=== PATIENT | male | born 1955 | race Caucasian/White ===

== ENCOUNTER 2017-01-12 09:43 | Emergency (ER) | payer SELFPAY ==
[~2017-01-12] VITALS: Ht 182.9 cm; Wt 137.7 kg
[2017-01-12 10:28] LABS: BASOPHIL COUNT 0.1 K/uL (0-0.1); EOSINOPHIL (%) 0.1 % (0-5); IMMATURE GRANULOCYTE COUNT 0.2 K/uL; INSTRUMENT ABS NEUTROPHIL CT 13.1 K/uL; LYMPHOCYTE COUNT 1.9 K/uL (1.0-2.8); MCHC 32.9 G/DL (30.0-36.0); MCV 97.4 FL (86-99); MEAN PLAT.VOLUME 10.3 uM^3 (9.0-12.4); MONOCYTE (%) 8.9 % (3-12); MONOCYTE COUNT 1.5 K/uL (0-0.8); NEUTROPHIL (%) 78.2 % (45-76); NEUTROPHIL COUNT 13.1 K/uL (1.8-6.4); PLATELET COUNT 177 K/uL (156-360); RBC DIS.WIDTH-CV 12.8 % (11.8-14.6); RBC DIS.WIDTH-SD 45.2 % (39-53); RED BLOOD COUNT 4.93 M/uL (4.00-5.50); WHITE BLOOD COUNT 16.8 K/uL (4.1-10.2)
[2017-01-12 10:31] LABS: CREATININE 2.7 mg/dL (0.6-1.3); POTASSIUM 4.2 mEq/L (3.7-5.4)
[2017-01-12 10:39] LABS: INTER. NORMALIZED RATIO 1.7; PROTHROMBIN TIME 17.6 (9.2-11.2); PTT 24.7 (25-32)
[2017-01-12 10:41] LABS: CHLORIDE 98 mEq/L (99-109); POTASSIUM 4.4 mEq/L (3.7-5.4); SODIUM 135 mEq/L (136-147)
[2017-01-12 10:42] LABS: GLUCOSE 165 mg/dL (70-99)
[2017-01-12 10:44] LABS: ANION GAP 24 MEQ/L (2-14)
[2017-01-12 10:46] LABS: GFR ESTIMATE (CALCULATED) 25 mL/min/
[2017-01-12 10:47] LABS: UREA NITROGEN (BUN) 44 mg/dL (9-23)
[2017-01-12 10:49] LABS: TROP-I INTERPRETATION NEGATIVE; TROPONIN-I 0.07 ng/mL (0.0-0.30)
[2017-01-12 11:42] VITALS: BP 189/141
[2017-01-12 12:05] LABS: POINT-OF-CARE METER ID UU13113702
== END 2017-01-12 12:10 ==
LOC: EME 09:43
PROVIDERS: Emergency Medicine
DX: R06.02 Shortness of breath (principal); I48.92 Unspecified atrial flutter; I48.91 Unspecified atrial fibrillation; I46.2 Cardiac arrest due to underlying cardiac condition; Z86.711 Personal history of pulmonary embolism
CPT/HCPCS: 70450; 71010; 80047; 80048; 82948; 83605; 83880; 84484; 85025; 85610; 85730; 87040; 87801; 92950; 93005; 99281; 99285; J2543; J2997